=== PATIENT | female | born 2000 | race African-American/Black ===

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

== ENCOUNTER 2018-12-26 20:50 | Emergency (ER) | payer MEDICAID ==
[~2018-12-26] VITALS: Ht 165.1 cm; Wt 66.0 kg
[2018-12-26] MEDS ORDERED: DEXAMETHASONE 10 MG/ML VIAL PO ONE (23:00)
[2018-12-27 00:57] VITALS: BP 112/69
== END 2018-12-27 01:00 | disposition home or self-care (01) ==
LOC: ER 21:53
DX: J02.8 Acute pharyngitis due to other specified organisms (principal)
CPT/HCPCS: 87070; 87077; 87430; 99283; J1100

== ENCOUNTER 2019-09-02 17:12 | Emergency (ER) | payer MEDICAID ==
[~2019-09-02] VITALS: Ht 162.6 cm; Wt 66.0 kg
[2019-09-02 17:15] VITALS: BP 115/60
[2019-09-02] MEDS ORDERED: ACETAMINOPHEN 325MG TABLET PO STA (19:18)
== END 2019-09-02 20:28 | disposition home or self-care (01) ==
LOC: ER 17:12
DX: O99.512 Diseases of the respiratory system complicating pregnancy, second trimester (principal); J02.8 Acute pharyngitis due to other specified organisms; B34.9 Viral infection, unspecified; Z3A.22 22 weeks gestation of pregnancy
CPT/HCPCS: 87070; 87430; 99283